=== PATIENT | female | born 1970 | race Caucasian/White ===

== ENCOUNTER 2017-09-13 08:18 | Emergency (ER) | payer OTHER, MEDICAID ==
[2017-09-13] MEDS: DEXAMETHASONE 10 MG/ML 1 ML INJ IM (09:14)
[2017-09-13] MEDS: IBUPROFEN 800 MG TAB PO (09:14)
[2017-09-13] MEDS: ONDANSETRON (ODT) 4 MG TAB ODT (09:14)
[2017-09-13] MEDS: ACETAMINOPHEN 500 MG TAB PO (09:14)
== END 2017-09-13 09:29 | disposition home or self-care (01) ==
LOC: FTE 08:18
DX: J02.0 Streptococcal pharyngitis (principal)
CPT/HCPCS: 93005; 96372; 99284-25